=== PATIENT | female | born 1960 ===

== ENCOUNTER 2018-12-01 10:08 | Outpatient (CLI) | payer OTHER | END 2018-12-01 10:09 | disposition home or self-care (01) | LOC: C.MAMMO 10:08 | DX: N63.0 Unspecified lump in unspecified breast (principal) ==

== ENCOUNTER 2018-12-09 09:54 | Outpatient (CLI) | payer OTHER | END 2018-12-09 09:55 | disposition home or self-care (01) | LOC: C.SPRAD 09:54 | DX: N63.20 Unspecified lump in the left breast, unspecified quadrant (principal) ==